=== PATIENT | male | born 1995 | race Caucasian/White ===

== ENCOUNTER 2020-01-11 21:26 | Emergency (ER) | payer OTHER ==
[~2020-01-11] VITALS: Ht 177.8 cm; Wt 72.6 kg
[2020-01-11 21:37] VITALS: BP 131/64
--- NOTE | 2020-01-11 21:37 | NUR ---
ED Nurse Note: pt ambulated into ed from home CO abdominal pain 8/10 x 3 hours that began while pt was eating dinner at home. PT states this pain is familiar to the same pain he had 3 years ago for appendicitis. Pt denies any previous surgeries. PT aao x 4, ambulates with steady gait. VSS no ss of distress noted. Will continue to monitor. Awaiting ERMD at bedside.
[2020-01-11] MEDS ORDERED: TRUVADA1 TAB ORAL (21:38)
--- NOTE | 2020-01-11 21:45 | NUR ---
ED Nurse Note: all blood work and UA sent to lab.
--- NOTE | 2020-01-11 21:52 | Emergency Room Report ---
History of Present Illness General Chief Complaint: Abdominal Pain Source: Patient Present Illness HPI Patient is a 24-year-old male presents after increased right upper sided abdominal pain. Reports having onset of symptoms approximate 3 hours ago. Reports having prior history of appendicitis which had previously been treated conservatively with antibiotics. Denies any fever. States that he had not been vomiting. He denies any hematemesis or bloody stools. Pain had been relatively constant to the right lower abdomen. Denies any diarrhea. Reports intermittent alcohol use and states he has been drinking 2-3 drinks over the past 3 days. Reports smoking marijuana regularly. Denies any current weakness or lightheadedness. Reports having moderate pain. Denies any change in movement. Allergies: Coded Allergies: No Known Allergies (Unverified , 01/11/20) COVID-19 Screening Contact w/high risk pt: No Experienced COVID-19 symptoms?: No COVID-19 Testing performed CANE LOADER: No Patient History Past Medical History: see triage record Reviewed Nursing Documentation: PMH: Agreed; PSxH: Agreed Nursing Documentation-PMH Past Medical History: No History, Except For Review of Systems All Other Systems: negative except mentioned in HPI Physical Exam Vital Signs Date Time Temp Pulse Resp B/P (MAP) Pulse Ox O2 Delivery O2 Flow Rate FiO2 01/11/20 21:33 99.1 92 12 131/64 (86) 100 Room Air Sp02 EP Interpretation: reviewed, normal General Appearance: normal inspection, well appearing, no apparent distress, alert, GCS 15 Head: atraumatic ENT: normal ENT inspection, hearing grossly normal, normal voice Neck: normal inspection, full range of motion, supple, no bony tend Respiratory: normal inspection, lungs clear, normal breath sounds, no respiratory distress, no retraction, no wheezing Cardiovascular #1: regular rate, rhythm, no edema Gastrointestinal: normal inspection, normal bowel sounds, soft, no guarding, no hernia, tenderness - Mild tenderness to the right lower abdomen. No guarding Genitourinary: no CVA tenderness Musculoskeletal: normal inspection, back normal, normal range of motion Neurologic: alert, motor strength/tone normal, barrel waterer III-XII nml as tested, oriented x3, responsive, speech normal, normal inspection Psychiatric: normal inspection, judgement/insight normal, mood/affect normal Medical Decision Making Diagnostic Impression: Primary Impression: Nonspecific abdominal pain ER Course Patient presented for abdominal pain. Differential diagnosis include was not limited to pancreatitis, appendicitis, kidney stone among others. Because of complexity of patient's case laboratory tests and imaging studies were ordered.Laboratory testing showed normal white blood count with mild hypokalemia. Patient does not appear to have any evidence of surgical abdomen at this time. CT imaging was ordered to patient's complaint of right lower quadrant pain and possible appendicitis.CT imaging read by radiology showed nonspecific portal edema as well as no evidence of appendicitis. He was advised to avoid alcohol. Patient given pain medications as well as IV fluids. Patient was advised to follow-up with his primary care physician for recheck. He was to return if worse. The patient is advised to follow up with primary care doctor in 1-2 days. Patient is advised to return if any worsening condition or if any changes in status that are concerning. This report is dictated with [employer] medical staff manager software which may occasionally lead to discrepancies related to use of this software. Labs Test 01/11/20 21:40 01/11/20 22:00 White Blood Count 7.8 K/UL (4.8-10.8) Red Blood Count 4.64 M/UL (4.70-6.10) Hemoglobin 14.7 G/DL (14.2-18.0) Hematocrit 43.3 % (42.0-52.0) Mean Corpuscular Volume 93 FL (80-99) Mean Corpuscular Hemoglobin 31.8 PG (27.0-31.0) Mean Corpuscular Hemoglobin Concent 34.1 G/DL (32.0-36.0) Red Cell Distribution Width 11.6 % (11.6-14.8) Platelet Count 253 K/UL (150-450) Mean Platelet Volume 6.8 FL (6.5-10.1) Neutrophils (%) (Auto) 62.0 % (45.0-75.0) Lymphocytes (%) (Auto) 28.0 % (20.0-45.0) Monocytes (%) (Auto) 7.3 % (1.0-10.0) Eosinophils (%) (Auto) 2.1 % (0.0-3.0) Basophils (%) (Auto) 0.6 % (0.0-2.0) Prothrombin Time 11.6 SEC (9.30-11.50) Prothromb Time International Ratio 1.1 (0.9-1.1) Activated Partial Thromboplast Time 28 SEC (23-33) Sodium Level 143 MMOL/L (136-145) Potassium Level 3.2 MMOL/L (3.5-5.1) Chloride Level 102 MMOL/L (98-107) Carbon Dioxide Level 31 MMOL/L (21-32) Anion Gap 10 mmol/L (5-15) Blood Urea Nitrogen 11 mg/dL (7-18) Creatinine 1.0 MG/DL (0.55-1.30) Estimat Glomerular Filtration Rate > 60 mL/min (>60) Glucose Level 117 MG/DL (74-106) Calcium Level 9.1 MG/DL (8.5-10.1) Total Bilirubin 1.3 MG/DL (0.2-1.0) Aspartate Amino Transf (AST/SGOT) 100 U/L (15-37) Alanine Aminotransferase (ALT/SGPT) 84 U/L (12-78) Alkaline Phosphatase 111 U/L (46-116) Total Protein 7.7 G/DL (6.4-8.2) Albumin 4.8 G/DL (3.4-5.0) Globulin 2.9 g/dL Albumin/Globulin Ratio 1.7 (1.0-2.7) Lipase 209 U/L (73-393) Urine Color Yellow Urine Appearance Very cloudy Urine pH 8 (4.5-8.0) Urine Specific Harshaw 1.015 (1.005-1.035) Urine Protein Negative (NEGATIVE) Urine Glucose (UA) Negative (NEGATIVE) Urine Ketones Negative (NEGATIVE) Urine Blood Negative (NEGATIVE) Urine Nitrite Negative (NEGATIVE) Urine Bilirubin Negative (NEGATIVE) Urine Urobilinogen Normal MG/DL (0.0-1.0) Urine Leukocyte Esterase Negative (NEGATIVE) Last Vital Signs Date Time Temp Pulse Resp B/P (MAP) Pulse Ox O2 Delivery O2 Flow Rate FiO2 01/11/20 21:33 99.1 92 12 131/64 (86) 100 Room Air Status: improved Disposition: HOME, SELF-CARE Condition: Stable Scripts Dicyclomine Hcl* (DICYCLOMINE HCL*) 10 Mg Capsule 10 MG ORAL QID, #20 CAP Prov: Sai Manrique MD 01/11/20 Omeprazole (OMEPRAZOLE) 20 Mg Capsule.dr 20 MG ORAL DAILY, #30 CAP Prov: Sai Manrique MD 01/11/20 Ondansetron Odt* (ZOFRAN ODT*) 4 Mg Tab.rapdis 4 MG BC EVERY 8 HOURS PRN for Nausea & Vomiting, #10 TAB 0 Refills Prov: Sai Manrique MD 01/11/20 Sai Manrique MD Jan 11, 2020 21:52
[2020-01-11] MEDS ORDERED: Omnipaque-300 100ml vial INJ PRN (22:00)
[2020-01-11] MEDS ORDERED: Morphine Sulfate 2mg/ml Inj(IV/IM USE ONLY) IVP ONE (22:00)
--- NOTE | 2020-01-11 22:00 | NUR ---
ED Nurse Note: all medications adminsitered, pt tolerated well no ss of distress noted. will continue to monitor.
[2020-01-11 22:06] LABS: BASOPHILS % (AUTO) 0.6 % (0.0-2.0); EOSINOPHILS % (AUTO) 2.1 % (0.0-3.0); HEMATOCRIT 43.3 % (42.0-52.0); HEMOGLOBIN 14.7 G/DL (14.2-18.0); MEAN CORPUSCULAR VOLUME 93 FL (80-99); MONOCYTES % (AUTO) 7.3 % (1.0-10.0); PLATELET COUNT 253 K/UL (150-450); RED BLOOD COUNT 4.64 M/UL (4.70-6.10); RED CELL DISTRIBUTION WIDTH 11.6 % (11.6-14.8); WHITE BLOOD COUNT 7.8 K/UL (4.8-10.8)
[2020-01-11 22:15] LABS: ANION GAP 10 mmol/L (5-15); BLOOD UREA NITROGEN 11 mg/dL (7-18); CALCIUM 9.1 MG/DL (8.5-10.1); CARBON DIOXIDE 31 MMOL/L (21-32); CHLORIDE 102 MMOL/L (98-107); POTASSIUM 3.2 MMOL/L (3.5-5.1); SODIUM 143 MMOL/L (136-145)
[2020-01-11 22:17] LABS: INR 1.1 (0.9-1.1)
--- NOTE | 2020-01-11 22:20 | NUR ---
ED Nurse Note: pt taken to CT in stable condition
[2020-01-11 22:26] LABS: APPEARANCE,URINE VERY CLOUDY; BILIRUBIN, URINE NEGATIVE (NEGATIVE); GLUCOSE, URINE (UA) NEGATIVE (NEGATIVE); KETONES,URINE NEGATIVE (NEGATIVE); LEUKOCYTE ESTERASE ,URINE NEGATIVE (NEGATIVE); NITRITE,URINE NEGATIVE (NEGATIVE); PH,URINE 8 (4.5-8.0); PROTEIN,URINE NEGATIVE (NEGATIVE); UROBILINOGEN,URINE NORMAL MG/DL (0.0-1.0)
[2020-01-11 22:26] LABS: ALANINE AMINOTRANSFERASE 84 U/L (12-78); ALBUMIN 4.8 G/DL (3.4-5.0); ALBUMIN/GLOBULIN RATIO 1.7 (1.0-2.7); ALKALINE PHOSPHATASE 111 U/L (46-116); ASPARTATE AMINO TRANSFERASE 100 U/L (15-37); BILIRUBIN,TOTAL 1.3 MG/DL (0.2-1.0)
[2020-01-11 22:27] LABS: COLOR,URINE YELLOW
[2020-01-11 22:30] LABS: BILIRUBIN,DIRECT 0.6 MG/DL (0.0-0.3)
--- NOTE | 2020-01-11 22:43 | NUR ---
ED Nurse Note: Pt returned from CT in stable condition
--- NOTE | 2020-01-11 22:59 | Diagnostic Imaging Report ---
EXAM: CT Abdomen and Pelvis With Intravenous Contrast CLINICAL HISTORY: ABD PAIN TECHNIQUE: Axial computed tomography images of the abdomen and pelvis with intravenous contrast. CTDI is 4.7 mGy and DLP is 246.7 mGy-cm. One or more of the following dose reduction techniques were used: automated exposure control, adjustment of the mA and/or kV according to patient size, use of iterative reconstruction technique. Coronal and sagittal reformatted images were created and reviewed. COMPARISON: No relevant prior studies available. FINDINGS: Lung bases: Unremarkable. No mass. No consolidation. ABDOMEN: Liver: Periportal edema can be seen in vigorous fluid resuscitation. Gallbladder and bile ducts: Gallbladder distention without additional findings to suggest acute cholecystitis. No ductal dilation. Pancreas: Unremarkable. No mass. No ductal dilation. Spleen: Unremarkable. No splenomegaly. Adrenals: Unremarkable. No mass. Kidneys and ureters: Unremarkable. No solid mass. No hydronephrosis. Stomach and bowel: Unremarkable. No obstruction. No mucosal thickening. PELVIS: Appendix: No findings to suggest acute appendicitis. Bladder: Urinary bladder wall thickening could be incidental, due to high outlet pressures, or could represent cystitis. Reproductive: Unremarkable as visualized. ABDOMEN and PELVIS: Intraperitoneal space: Unremarkable. No free air. No significant fluid collection. Bones/joints: No acute fracture. No dislocation. Soft tissues: Unremarkable. Vasculature: Unremarkable. No abdominal aortic aneurysm. Lymph nodes: Unremarkable. No enlarged lymph nodes. IMPRESSION: 1. Urinary bladder wall thickening could be incidental, due to high outlet pressures, or could represent cystitis. 2. Gallbladder distention without additional findings to suggest acute cholecystitis. 3. Periportal edema can be seen in vigorous fluid resuscitation. 4. Otherwise no acute abnormality definitively identified to account for patient presentation.
--- NOTE | 2020-01-11 23:20 | NUR ---
ED Nurse Note: ERMD at bedside
[2020-01-11] MEDS ORDERED: ONDANSETRON ODT4 MG BC (23:27)
[2020-01-11] MEDS ORDERED: DICYCLOMINE HCL10 MG ORAL (23:27)
[2020-01-11] MEDS ORDERED: OMEPRAZOLE20 M2 ORAL (23:27)
[2020-01-11 23:44] VITALS: BP 115/75
--- NOTE | 2020-01-11 23:44 | NUR ---
ER DISCHARGE NOTE: Patient is cleared to be discharged home per ERMD, pt is aox4, 99% on room air, with stable vital signs. pt was given dc and prescription instructions, pt was able to verbalize understanding, pt id band and iv site removed without complications. pt is able to ambulate with steady gait. pt took all belongings.
== END 2020-01-11 23:44 | disposition home or self-care (01) ==
LOC: EMR 21:50
DX: R10.9 Unspecified abdominal pain (principal); F12.90 Cannabis use, unspecified, uncomplicated; E87.6 Hypokalemia
CPT/HCPCS: 36415; 74177; 80053; 81003; 82248; 83690; 85025; 85610; 85730; 86850; 86900; 86901; 87040; 96361; 96374; 96375; J2270; J2405; J7030; Q9965; S0028; Z7502; 99284